=== PATIENT | male | born 1955 | race Caucasian/White ===

== ENCOUNTER 2017-12-03 18:00 | Inpatient (IN) | payer BC, OTHER, SELFPAY ==
[2017-12-03] VITALS (9 sets, daily range): BP systolic 110–139; BP diastolic 62–79; PULSE 84–97; RESP 16–24; TEMP 36.9–39.8; O2SAT 89–95; BMI 34.2
--- NOTE | 2017-12-03 18:19 | DI.RAD.S_ITS ---
PROCEDURE: XR CHEST 1V INDICATIONS: suspected sepsis TECHNIQUE: One view of the chest was acquired. COMPARISON: None. FINDINGS: Surgical changes and devices: None. Lungs and pleura: Focal pulmonary consolidation is present at the inferior right upper lobe. Airspace opacities are likely present at the left lung base as well. Mediastinum: Mediastinal contours appear normal. Heart size is normal. Bones and chest wall: No suspicious bony lesions. Overlying soft tissues appear unremarkable. IMPRESSION: Findings suspicious for multifocal pneumonia. Dictated by: Kim Lima M.D. on 12/03/2017 at 19:00 Approved by: Kim Lima M.D. on 12/03/2017 at 19:01
[2017-12-03] MEDS: IBUPROFEN 400 MG TABLET 800 MG PO (18:21)
[2017-12-03] MEDS: ACETAMINOPHEN 325 MG TABLET 975 MG PO (18:22)
[2017-12-03] MEDS: SODIUM CHLORIDE 0.9% 1,000 ML 1000 ML IV ×2 (18:37→19:39)
[2017-12-03 18:42] LABS: Add Manual Diff / Slide Review NO; Basophils Percent Auto 0.3 % (0-2); Hematocrit 41.4 % (41-53); Hemoglobin 14.2 g/dL (13.5-17.5); Lymphocytes Percent Auto 16.4 % (25-40); Mean Corpuscular HGB Conc 34.3 % (30-36); Mean Corpuscular Hemoglobin 30.8 PG (26-34); Mean Corpuscular Volume 89.7 fL (80-100); Monocytes Percent Auto 19.3 % (3-14); Neutrophils Absolute Auto 3600 /uL (3000-5900); Platelet Count 186 X10^3/uL (150-400); Red Blood Cell Count 4.61 X10^6/uL (4.5-5.9); Red Cell Distribution Width 14.9 % (11.6-14.8); White Blood Cell Count 5.7 X10^3/uL (4.5-11.0)
[2017-12-03 18:53] LABS: INR 1.5 (0.9-1.3); Prothrombin Time 16.1 SECONDS (10.1-12.7)
[2017-12-03 18:56] LABS: PTT Partial Thromboplastin Tim 35 SECONDS (26.4-36.2)
[2017-12-03 19:07] LABS: Alanine Aminotransferase 34 IU/L (21-72); Albumin Globulin Ratio 1.2 (1.0-2.8); Alkaline Phosphatase 57 U/L (38-126); Aspartate Aminotransferase 45 IU/L (17-59); BUN Creatinine Ratio 21.1 (6-22); Bilirubin Total 0.4 mg/dL (0.2-1.3); Blood Urea Nitrogen 19 mg/dL (9-20); Calcium 8.8 mg/dL (8.4-10.2); Carbon Dioxide 26 mmol/L (22-32); Chloride 99 mmol/L (98-107); Estimated Glomerular Filt Rate > 60.0 mL/min (>60); Globulin 3.4 g/dL (1.7-4.1); Glucose 105 mg/dL (80-110); HEMOLYSIS < 15 (0-50); Lipase 54 U/L (23-300); Potassium 4.2 mmol/L (3.4-5.1); Sodium 137 mmol/L (137-145); Total Protein 7.4 g/dL (6.3-8.2)
[2017-12-03 19:08] LABS: Lactate (Lactic Acid) 1.1 mmol/L (0.7-2.1)
[2017-12-03 19:15] LABS: Procalcitonin 0.74 ng/mL (<0.5)
--- NOTE | 2017-12-03 19:21 | ED.FEVER ---
HPI - Fever General Chief Complaint: Fever Stated Complaint: FEVER,SHAKES BAD HEADACHE Time Seen by Provider: 12/03/17 18:42 Source: patient and family Mode of arrival: ambulatory Limitations: no limitations History of Present Illness HPI Narrative: 62-year-old male with cardiac history presents with his and a chief complaint of fever and chills over the past week or so. He is currently driving cross-country in his RV and denies much in the way of specific symptoms but does state he has had a vague frontal headache in the absence of any neck pain, confusion or blurred vision. He denies runny nose or sore throat. He denies chest pain but has had some cough. He denies nausea, vomiting or diarrhea. He denies dysuria, frequency or urgency. He denies any rash, redness or swollen skin MD complaint: fever Onset (ago): day(s) Temperature Source: oral Associated symptoms: headache and cough Relieving factors: nothing Exacerbating factors: nothing Related Data Home Medications Medication Instructions Recorded Confirmed amlodipine 10 mg tablet 10 mg PO DAILY 12/03/17 12/03/17 aspirin 81 mg tablet,delayed 81 mg PO DAILY 12/03/17 12/03/17 release clopidogrel 75 mg tablet 75 mg PO DAILY 12/03/17 12/03/17 fenofibrate micronized 134 mg 134 mg PO DAILY 12/03/17 12/03/17 capsule meloxicam 7.5 mg PO DAILY 12/03/17 12/03/17 metoprolol tartrate 100 mg tablet 100 mg PO BID 12/03/17 12/03/17 naltrexone 50 mg tablet 50 mg PO DAILY 12/03/17 12/03/17 ramipril 10 mg capsule 10 mg PO DAILY 12/03/17 12/03/17 valacyclovir 500 mg PO Q8H 12/03/17 12/03/17 Allergies Allergy/AdvReac Type Severity Reaction Status Date / Time Lqipycn-Owg-Vxb Reductase Allergy Verified 12/03/17 17:26 Inhibitor Review of Systems Review of Systems All systems reviewed & are unremarkable except as noted in HPI and below Constitutional Reports chills, Reports fever(s), Reports headache(s), Denies lethargy and Denies weakness Eyes Denies change in vision, Denies eye discharge, Denies irritation and Denies loss of vision ENT Ears, Nose, Mouth, and Throat: Denies change in voice, Reports headache(s), Denies neck pain and Denies sore throat Cardiovascular Denies chest pain, Denies irregular heart rhythm, Denies lightheadedness, Denies palpitations, Denies dyspnea, Denies dyspnea on exertion and Denies orthopnea Respiratory Reports cough, Denies dyspnea, Denies dyspnea on exertion and Denies wheezing Gastrointestinal Gastrointestinal: Denies abdominal pain, Denies change in bowel habits, Denies diarrhea, Denies nausea and Denies vomiting Genitourinary Denies hematuria, Denies flank pain, Denies urinary incontinence and Denies urinary urgency Musculoskeletal Denies neck pain Integumentary/Breasts Denies pruritus, Denies erythema, Denies rash and Denies wounds Neurologic Denies confusion, Reports headache(s), Denies loss of vision and Denies weakness Psychiatric Denies anxiety, Denies confusion, Denies depression, Denies homicidal ideation and Denies suicidal ideation Endocrine Denies palpitations Hematologic/Lymphatic Denies easy bruising Allergic/Immunologic Denies wheezing [facility] Medical History CAD (coronary artery disease) (Acute) Carpal tunnel syndrome on both sides (Acute) Hypertension (Acute) Rotator cuff arthropathy of both shoulders (Acute) Surgical History History of appendectomy (Acute) History of tonsillectomy (Acute) Hx of LASIK (Acute) Hx of coronary artery bypass surgery (Acute) Stented coronary artery (Acute) Social History household members: spouse Smoking Status: Never smoker alcohol intake: current Exam Narrative Exam Narrative: 62-year-old male is resting comfortably, in no respiratory distress, hypoxic at 84% on arrival Initial Vital Signs Initial Vital Signs: Vital Signs Temperature 103.7 F H 12/03/17 18:12 Pulse Rate 94 H 12/03/17 18:12 Respiratory Rate 20 12/03/17 18:12 Blood Pressure 139/79 12/03/17 18:12 Pulse Oximetry 94 12/03/17 18:12 Const General: cooperative, well developed and acute distress Nutritional Appearance: well nourished and obese Orientation: alert, awake, oriented x3 and not confused HENMT Head: normocephalic and atraumatic Ears: external ears normal and TM's normal bilaterally Nose: external nose normal and No nasal discharge Face and sinus: sinuses nontender, face symmetric, no sinus tenderness and No dry mucous membranes Mouth: oral mucosae normal and moist mucous membranes Teeth and gingiva: dentition normal Throat: tonsils normal and uvula midline Eyes General: appearance normal, both eyes and all related structures Eyelids: eyelids normal Conjunctivae: conjunctivae normal Sclera: sclerae normal Pupils: PERRL EOM: EOM intact bilaterally Neck Neck: No positive Brudzinski's sign and No positive Kernig's sign Other: No meningeal signs Chest Chest: normal inspection of the chest Resp Effort & Inspection: able to speak in complete sentences, respiratory distress, tachypneic and uses accessory muscles Auscultation: clear to auscultation bilaterally, crackles bilaterally, no rales, no rhonchi and no wheezes Cardio Rate: regular rate Rhythm: regular rhythm Heart Sounds: no click, no gallops, no murmurs and no rubs Pulses: normal peripheral pulses GI Inspection: non-distended Palpation: soft, no hepatosplenomegaly, No guarding, No pulsatile mass and No tender Auscultation: normal bowel sounds Back/Spine/Pelvis Back: No CVA tenderness Cervical Spine: cervical ROM normal and No pain with cervical ROM Thoracic/Lumbar Spine: thoracic and lumbar spine normal to inspection Skin General: no rashes or lesions noted, No jaundice and No petechiae Extrem General: full ROM, no clubbing, cyanosis or edema, no pedal edema and no calf tenderness Scores CURB-65 Confusion: No BUN >19mg/dL (>7mmol/L): Yes Respiratory rate greater or equal to 30: No SBP <90mmHg or DBP less or equal to 60mmHg: No Age 65 or Older: No CURB-65 Total: 1 Score 0-1 Outpatient care, Score 2 Inpt vs. Obs, Score 3 or over Inpt admit with ICU for score of 4-5 qSOFA Altered Mental Status (GCS <15): No Respiratory rate greater than/equal to 22: No Systolic blood pressure less than or equal to 100: No qSOFA Total: 0 0-1 Not High Risk 1-3 High risk Course Decision to Admit Date: 12/03/17 Decision to Admit time: 19:00 Orders Ordered: ED Orders 12/03/17 18:19 XR chest 1V Stat 12/03/17 18:34 Complete Blood Count AUTO DIFF Stat Comprehensive Metabolic Panel Stat Lactate (Lactic Acid) Stat Lipase Stat Partial Thromboplastin Time Stat Procalcitonin Stat Prothrombin Time INR Stat 12/03/17 18:50 Blood Culture Stat 12/03/17 20:50 Education, smoking cessation ONGOING Acetaminophen (Tylenol) 650 mg PO Q6HR PRN PRN Reason: As Needed for Fever/Mild Pain Hydrocodone Bitart/Acetaminophen ([place] 5/325) 1 tab PO Q4HR PRN PRN Reason: Pain, Moderate (4-6) Al Hydrox/Mg Hydrox/Simethicone (Maalox Plus) 30 ml PO Q6HR PRN PRN Reason: Dyspepsia Bisacodyl (Dulcolax) 10 mg [place] DAILY PRN PRN Reason: Constipation Calcium Carbonate (Tums) 1,000 mg PO Q4HR PRN PRN Reason: Dyspepsia Docusate Sodium (Colace) 100 mg PO BID [facility] Last Admin: 12/03/17 21:33 Dose: Not Given Enoxaparin Sodium (Lovenox) 40 mg SUBCUT DAILY [facility] Sodium Chloride (Normal Saline 0.9%) 1,000 mls @ 100 mls/hr IV CONT [facility] Last Admin: 12/03/17 21:33 Dose: 100 mls/hr Azithromycin 500 mg/ Dextrose 250 mls @ 250 mls/hr IV Q24H [facility] Last Infusion: 12/03/17 23:25 Dose: 0 mls/hr Admin: 12/03/17 21:32 Dose: 250 mls/hr Magnesium Hydroxide (Milk Of Magnesia) 30 ml PO DAILY PRN PRN Reason: Constipation Ondansetron HCl (Zofran) 4 mg IV Q8HR PRN PRN Reason: Nausea And Vomiting Ondansetron HCl (Zofran Odt) 4 mg PO Q8HR PRN PRN Reason: Nausea And Vomiting Pantoprazole Sodium (Protonix) 20 mg PO 0600 [facility] Sennosides (Senna) 17.2 mg PO BEDTIME [facility] Last Admin: 12/03/17 21:33 Dose: Not Given Sodium Biphosphate/Sodium Phosphate (Fleet Enema) 1 each [place] PRN PRN PRN Reason: Constipation Discontinued Medications Acetaminophen (Tylenol) 975 mg PO NOW ONE Stop: 12/03/17 18:20 Last Admin: 12/03/17 18:22 Dose: 975 mg Sodium Chloride (Normal Saline 0.9%) 1,000 mls @ 1,000 mls/hr IV BOLUS ONE Stop: 12/03/17 19:18 Last Infusion: 12/03/17 19:32 Dose: 0 mls/hr Admin: 12/03/17 18:37 Dose: 1,000 mls/hr Ceftriaxone Sodium/Dextrose (Rocephin) 1 gm in 50 mls @ 100 mls/hr IV NOW ONE Stop: 12/03/17 19:32 Last Infusion: 12/03/17 20:10 Dose: 100 mls/hr Admin: 12/03/17 19:36 Dose: 100 mls/hr Sodium Chloride (Normal Saline 0.9%) 1,000 mls @ 1,000 mls/hr IV BOLUS ONE Stop: 12/03/17 20:36 Last Infusion: 12/03/17 20:09 Dose: 1,000 mls/hr Admin: 12/03/17 19:39 Dose: 1,000 mls/hr Ibuprofen (Advil) 800 mg PO NOW ONE Stop: 12/03/17 18:20 Last Admin: 12/03/17 18:21 Dose: 800 mg Ketorolac Tromethamine (Toradol) 15 mg IV NOW ONE Stop: 12/03/17 19:06 Last Admin: 12/03/17 19:35 Dose: 15 mg Reevaluation(s) Reevaluation #1: Respiratory distress rapidly improves with oxygen by nasal cannula Reevaluation #2: Patient feels much better after fluids and Toradol Vital Signs - 8 hr 12/03/17 19:37 12/03/17 20:08 12/03/17 20:33 Temperature 99.1 F 98.9 F Pulse Rate 84 86 Respiratory Rate 20 20 Blood Pressure 110/62 128/76 Pulse Oximetry 93 93 12/03/17 20:50 12/03/17 23:10 Temperature 98.8 F 98.4 F Pulse Rate 86 85 Respiratory Rate 20 16 Blood Pressure 128/76 125/73 Pulse Oximetry 93 95 MDM - Fever Differential Diagnosis Likely fever of unknown origin, community acquired pneumonia, pyelonephritis, viral infection, sepsis and influenza Medical Records Attestation: I reviewed the patient's medical records. Lab Data Attestation: I reviewed the patient's lab results. Result diagrams: 12/03/17 18:34 12/03/17 18:34 Lab Results 12/03/17 12/03/17 12/03/17 Range/Units 18:34 18:34 18:34 WBC 5.7 (4.5-11.0) X10^3/uL RBC 4.61 (4.5-5.9) X10^6/uL Hgb 14.2 (13.5-17.5) g/dL Hct 41.4 (41-53) % MCV 89.7 (80-100) fL MCH 30.8 (26-34) PG MCHC 34.3 (30-36) % RDW 14.9 H (11.6-14.8) % Plt Count 186 (150-400) X10^3/uL Neut % (Auto) 64.0 (50-75) % Lymph % (Auto) 16.4 L (25-40) % [place] % (Auto) 19.3 H (3-14) % Eos % (Auto) 0.0 L (2-4) % Baso % (Auto) 0.3 (0-2) % Neut # (Auto) 3600 (8773-2877) /uL PT 16.1 H (10.1-12.7) SECONDS INR 1.5 H (0.9-1.3) APTT 35 (26.4-36.2) SECONDS Sodium (137-145) mmol/L Potassium (3.4-5.1) mmol/L Chloride (98-107) mmol/L Carbon Dioxide (22-32) mmol/L BUN (9-20) mg/dL Creatinine (0.66-1.25) mg/dL Estimated GFR (>60) mL/min BUN/Creatinine Ratio (6-22) Glucose (80-110) mg/dL Lactate (0.7-2.1) mmol/L Calcium (8.4-10.2) mg/dL Total Bilirubin (0.2-1.3) mg/dL AST (17-59) IU/L ALT (21-72) IU/L Alkaline Phosphatase (38-126) U/L Total Protein (6.3-8.2) g/dL Albumin (3.5-5.0) g/dL Globulin (1.7-4.1) g/dL Albumin/Globulin Ratio (1.0-2.8) Lipase (23-300) U/L Procalcitonin 0.74 H (<0.5) ng/mL 12/03/17 12/03/17 Range/Units 18:34 18:34 WBC (4.5-11.0) X10^3/uL RBC (4.5-5.9) X10^6/uL Hgb (13.5-17.5) g/dL Hct (41-53) % MCV (80-100) fL MCH (26-34) PG MCHC (30-36) % RDW (11.6-14.8) % Plt Count (150-400) X10^3/uL Neut % (Auto) (50-75) % Lymph % (Auto) (25-40) % [place] % (Auto) (3-14) % Eos % (Auto) (2-4) % Baso % (Auto) (0-2) % Neut # (Auto) (7560-9686) /uL PT (10.1-12.7) SECONDS INR (0.9-1.3) APTT (26.4-36.2) SECONDS Sodium 137 (137-145) mmol/L Potassium 4.2 (3.4-5.1) mmol/L Chloride 99 (98-107) mmol/L Carbon Dioxide 26 (22-32) mmol/L BUN 19 (9-20) mg/dL Creatinine 0.90 (0.66-1.25) mg/dL Estimated GFR > 60.0 (>60) mL/min BUN/Creatinine Ratio 21.1 (6-22) Glucose 105 (80-110) mg/dL Lactate 1.1 (0.7-2.1) mmol/L Calcium 8.8 (8.4-10.2) mg/dL Total Bilirubin 0.4 (0.2-1.3) mg/dL AST 45 (17-59) IU/L ALT 34 (21-72) IU/L Alkaline Phosphatase 57 (38-126) U/L Total Protein 7.4 (6.3-8.2) g/dL Albumin 4.0 (3.5-5.0) g/dL Globulin 3.4 (1.7-4.1) g/dL Albumin/Globulin Ratio 1.2 (1.0-2.8) Lipase 54 (23-300) U/L Procalcitonin (<0.5) ng/mL MDM Narrative Medical decision making narrative: Though labs are largely unremarkable, Q so foot score is low and curb 65 is low the patient has multi lobar pneumonia, fever of 103, and initial pulse ox of 83%. Discharge Plan Departure Patient Disposition: Admitted As Inpatient Clinical Impression: Community acquired pneumonia Discharge Date/Time: 12/03/17 20:11 Interventions: ED Discharge Assessment Last Done: 12/03/17 20:08 Admit Date/Time: 12/03/17 19:56 Admit Provider: Alonso Doe
[2017-12-03] MEDS: KETOROLAC 60 MG/2 ML VIAL 15 MG IV (19:35)
[2017-12-03] MEDS: CEFTRIAXONE 1 GM/50 ML FROZ.PIGGY IV (19:36)
[2017-12-03] MEDS: AZITHROMYCIN 500 MG in DEXTROSE 5% IN WATER 250 ML IV (21:32)
[2017-12-03] MEDS: SODIUM CHLORIDE 0.9% 1,000 ML 100 ML IV (21:33)
--- NOTE | 2017-12-03 22:26 | PC.NURSE ---
Pt admitted to acute care from er. Transferred via wheelchair. A/O. Denies pain. 2L O2, 93%. Oriented to room/call light. IV flushed/infusing w/o complications. Wallet/keys/pocket knife locked in safe.
--- NOTE | 2017-12-03 22:34 | PC.NURSE ---
ADMIT NOTE: Patient arrived to acute care via stretcher from ER at 2030. Patient on [place] oxygen 3L. Patient hot to touch but no fever, IVF infusing. Patient pleasant, alert and oriented times 4. Patient belongings placed in safe per patient request. Will continue to monitor.
[2017-12-04] VITALS (14 sets, daily range): BP systolic 110–141; BP diastolic 52–77; PULSE 77–97; RESP 18–24; TEMP 36.9–39.3; O2SAT 89–98
--- NOTE | 2017-12-04 | DI.CT.S_ITS ---
PROCEDURE: CT HEAD/BRAIN WO CON INDICATIONS: six days of debilitating headache in 62 YOA male. TECHNIQUE: Noncontrast 4.5 mm thick angled axial sections acquired from the foramen magnum to the vertex, with coronal and sagittal reformats. For radiation dose reduction, the following was used: automated exposure control, adjustment of mA and/or kV according to patient size. COMPARISON: None. FINDINGS: Image quality: Excellent. CSF spaces: Basal cisterns are patent. No extra-axial fluid collections. Ventricles are normal in size and shape. Brain: No midline shift. No intracranial masses or hemorrhage. Kirkpatrick-white matter interface is normal. Skull and face: Calvarium and visualized facial bones are intact, without suspicious lesions. Sinuses: Visualized sinuses and mastoids are clear. IMPRESSION: No acute intracranial disease process. Dictated by: Nel Martin MD, PhD on 12/04/2017 at 10:29 Approved by: Nel Martin MD, PhD on 12/04/2017 at 10:31
--- NOTE | 2017-12-04 00:25 | PC.NURSE ---
Injection Molding Technician Note: 0000: Awake, alert, denies chest pain or discomfort. Occasional dry cough. Vital signs stable. IV of NS infusing at 100cc/hr in PIV lt forearm. Pt is on telemetry. He remains on O2 2L/NC.
[2017-12-04] MEDS: ACETAMINOPHEN 325 MG TABLET 650 MG PO ×3 (04:11→23:35)
[2017-12-04] MEDS: PANTOPRAZOLE 20 MG TABLET PO (06:32)
[2017-12-04] MEDS: SODIUM CHLORIDE 0.9% 1,000 ML 100 ML IV ×2 (06:33→19:14)
[2017-12-04] MEDS: valACYclovir 500 MG TABLET PO ×3 (08:10→23:34)
[2017-12-04] MEDS: RAMIPRIL 5 MG CAPSULE 10 MG PO (08:10)
[2017-12-04] MEDS: FENOFIBRATE 145 MG TABLET PO (08:11)
[2017-12-04] MEDS: METOPROLOL 50 MG TABLET 100 MG PO (08:11)
[2017-12-04] MEDS: AMLODIPINE 5 MG TABLET 10 MG PO (08:11)
[2017-12-04] MEDS: ASPIRIN EC 81 MG TABLET PO (08:11)
[2017-12-04] MEDS: CLOPIDOGREL 75 MG TABLET PO (08:12)
[2017-12-04] MEDS: ENOXAPARIN 40 MG/0.4 ML SYRINGE SUBCUT (08:12)
[2017-12-04] MEDS: MELOXICAM 7.5 MG TABLET PO (08:13)
[2017-12-04] MEDS: KETOROLAC 30 MG/ML VIAL IV ×3 (08:49→23:34)
--- NOTE | 2017-12-04 09:22 | CM.DANOTE ---
DCP: Case received, EMR reviewed and met with patient. Introduced self and role.DCP template completed with information currently available. Patient is a 62 year old male who admitted yesterday evening to the care of hospitalist team. Patient is from [facility], and does not recall who his primary care physician is. Payer: confirmed: [facility] Out of [facility]. Patient came into hospital with symptoms of fever, tremors, as well as a severe headache. Diagnosis is Pneumonia. Patient is alert and oriented, is here visiting family in [place], he and his are from [place], [place]. P: DCP to continue to assess. Patient's goal is to return home when he is stable. Nati Canada RN/Entrance Guard
--- NOTE | 2017-12-04 11:19 | P.HP_ITS ---
History of Present Illness Date Patient Seen: 12/04/17 Time Patient Seen: 07:08 Chief complaint: FEVER,SHAKES BAD HEADACHE Narrative: Patient is a 62 years of age male who drove across country in an RV with his to visit family in area. During his cross country travel he developed a fairly prominent headache that virtually lasted the 6 days of travel. Patient also notes a dry cough and a fever for the past week. He was seen in the emergency room setting and noted to have bilateral multi lobar pneumonia. Diagnosis community-acquired pneumonia. Patient also had remarkable hypoxemia with a hemoglobin O2 sat of only 84% at room air. Patient is a nonsmoker. He was an alcoholic up until 3 months ago. Patient regularly takes naltrexone daily to reduce urges for alcohol consumption. At the present time patient states he consistently drinks only 1 or 2 beers every other day. He was typically drinking at least a 6 pack daily up until 3 months ago. Patient History Medical History CAD (coronary artery disease) (Acute) Carpal tunnel syndrome on both sides (Acute) Hypertension (Acute) Rotator cuff arthropathy of both shoulders (Acute) Surgical History History of appendectomy (Acute) History of tonsillectomy (Acute) Hx of LASIK (Acute) Hx of coronary artery bypass surgery (Acute) Stented coronary artery (Acute) Comment: PAST MEDICAL HISTORY Patient had myocardial infarction in 2014 with stent placement No history of diabetes nor cancer nor DVT or pulmonary embolism nor chronic lung disease Family & Social History Social History: household members spouse Prior Living Arrangements House Safety & Behavioral: Feels Safe in Current Yes Environment Been Physically Hurt or No Threatened By a Person Suicidal Ideation Description None Tobacco & Substance use: Smoking Status Never smoker alcohol intake current alcohol intake frequency 0-2 drinks per day Substance Use Type does not use Comment: SOCIAL HISTORY Patient is for the past 18 years. Patient stopped alcohol abuse and drinking excessively 3 months ago Patient has been on naltrexone daily to reduce urges for alcohol abuse Patient notes he drinks 1 or 2 beers every other day fairly consistently Patient is nonsmoker SURGICAL HISTORY Patient notes cardiac stents placed to nephews ago 2014 FAMILY HISTORY Father with history of alcohol abuse mother with history of diabetes Meds Home Medications Medication Instructions Recorded Confirmed Type amlodipine 10 mg tablet 10 mg PO DAILY 12/03/17 12/03/17 History aspirin 81 mg tablet,delayed 81 mg PO DAILY 12/03/17 12/03/17 History release clopidogrel 75 mg tablet 75 mg PO DAILY 12/03/17 12/03/17 History fenofibrate micronized 134 mg 134 mg PO DAILY 12/03/17 12/03/17 History capsule meloxicam 7.5 mg PO DAILY 12/03/17 12/03/17 History metoprolol tartrate 100 mg tablet 100 mg PO BID 12/03/17 12/03/17 History naltrexone 50 mg tablet 50 mg PO DAILY 12/03/17 12/03/17 History ramipril 10 mg capsule 10 mg PO DAILY 12/03/17 12/03/17 History valacyclovir 500 mg PO Q8H 12/03/17 12/03/17 History Allergies Allergy/AdvReac Type Severity Reaction Status Date / Time Abhpvgo-Qzv-Dcq Reductase Allergy Verified 12/03/17 17:26 Inhibitor Review of Systems Review of Systems Ten point system reviewed with patient and was negative except for the symptoms as described. Patient with fever relatively dry cough terrible headache across the frontal lobe region of head Exam Vital Signs (past 8 hours): - 12/04/17 03:50 12/04/17 07:23 12/04/17 09:36 Temperature 102.7 F H 99.5 F Pulse Rate 97 H 83 Respiratory Rate 20 18 Blood Pressure 141/77 H 128/71 Pulse Oximetry 93 96 93 Oxygen Delivery Method Nasal Cannula Oxygen Flow Rate 2 Narrative Exam Narrative: General appearance patient is awake and alert no apparent distress Psychiatric well oriented to time place person mood is pleasant and cooperative affect is appropriate Skin no rashes or lesions no jaundice. Turgor normal Eyes pupils are equal round and reactive to light Ears nose and throat hearing grossly intact nose septum to midline no bleeding no oropharyngeal lesions noted Respiratory clear to auscultation with fairly good flow no significant wheezes or crackles noted his body habitus somewhat obscures exam Cardiovascular regular in rate and rhythm no murmurs are noted +3 pulses to extremities Gastrointestinal abdomen is soft nontender positive bowel sounds no masses no bruits no organomegaly noted The lymphatic system no lymphadenopathy to neck or axilla Neurologic no focal neurologic changes cranial nerves 2-12 grossly intact Motor strength 5/5 no clubbing range of motion or Objective Labs Result Diagrams: 12/03/17 18:34 12/03/17 18:34 Labs: Laboratory Results - last 24 hr 12/03/17 12/03/17 12/03/17 18:34 18:34 18:34 WBC 5.7 RBC 4.61 Hgb 14.2 Hct 41.4 MCV 89.7 MCH 30.8 MCHC 34.3 RDW 14.9 H Plt Count 186 Neut % (Auto) 64.0 Lymph % (Auto) 16.4 L [place] % (Auto) 19.3 H Eos % (Auto) 0.0 L Baso % (Auto) 0.3 Neut # (Auto) 3600 PT 16.1 H INR 1.5 H APTT 35 Sodium Potassium Chloride Carbon Dioxide BUN Creatinine Estimated GFR BUN/Creatinine Ratio Glucose Lactate Calcium Total Bilirubin AST ALT Alkaline Phosphatase Total Protein Albumin Globulin Albumin/Globulin Ratio Lipase Procalcitonin 0.74 H 12/03/17 12/03/17 18:34 18:34 WBC RBC Hgb Hct MCV MCH MCHC RDW Plt Count Neut % (Auto) Lymph % (Auto) [place] % (Auto) Eos % (Auto) Baso % (Auto) Neut # (Auto) PT INR APTT Sodium 137 Potassium 4.2 Chloride 99 Carbon Dioxide 26 BUN 19 Creatinine 0.90 Estimated GFR > 60.0 BUN/Creatinine Ratio 21.1 Glucose 105 Lactate 1.1 Calcium 8.8 Total Bilirubin 0.4 AST 45 ALT 34 Alkaline Phosphatase 57 Total Protein 7.4 Albumin 4.0 Globulin 3.4 Albumin/Globulin Ratio 1.2 Lipase 54 Procalcitonin Assessment & Plan Plan: Assessment/Plan Narrative: 1. Community-acquired pneumonia Rocephin and Zithromax antibiotic started IV. Blood culture submitted. 2. Hypoxemia Patient noted with an 84% hemoglobin on room air at rest upon admission Oxygen provided with good response 3. History of atherosclerotic heart disease Note NM with stent placement 2 and half years ago Continue the cardiac meds as tolerated 4. History of alcoholism Patient was last abusive with alcohol about 3 months ago. Patient is compliant with his naltrexone normally. Not track sound is not on formulary. Patient okay to provide his own once his brings it in Will provide Ativan 1 mg p.o. b.i.d. in the meantime as needed. 5. Fever Tylenol as needed 6. Headache Since patient has had this headache for 6 days and has no prior history of headache problems I am a bit more concerned than usual. Moreover, patient is greater than 50 years of age. I requested a CT of the head brain without contrast to look for evidence of subarachnoid hemorrhage. Will provide analgesic therapy and anti-inflammatory therapy measures this morning to test for affect. Time Spent With Patient Time with patient: Greater than 35 minutes (70 min ) Quality VTE Deep Vein Thrombosis/Pulmonary Embolism Present on Admission: No
--- NOTE | 2017-12-04 11:32 | PC.NURSE ---
Pt up to bathroom independently. Given toradol for headache and pt reported improvement and now rates at 4/10. CT scan completed with NAD. Seen by MD who advised pt will need several more days on antibiotics before dc. O2 sats = 93% on 2l.
[2017-12-04] MEDS: AZITHROMYCIN 500 MG in SODIUM CHLORIDE 0.9% 250 ML IV (13:37)
[2017-12-04] MEDS: CEFTRIAXONE 1 GM/50 ML FROZ.PIGGY IV (14:57)
--- NOTE | 2017-12-04 15:30 | PC.NURSE ---
Pt had an episode of rigors around 1300. observed flushed face and upper ext shaking bilat. Temp 99.6. MD advised and blood cultures ordered. IV abx continue. Pt given tylenol as well. Reports feeling improved an hour later.
[2017-12-04] MEDS: ZOLPIDEM 5 MG TABLET 10 MG PO (23:34)
--- NOTE | 2017-12-04 23:53 | PC.NURSE ---
Addendum entered by Shanel Perez R.N. 12/05/17 05:51: Denies any pain this morning and states he was able to sleep. O2 sat currently 93% on 1L/min oxygen. Continues to deny any SOB. Original Note: Addendum entered by Shanel Perez R.N. 12/05/17 03:35: Patient was on 2L/min oxygen and sat remaining at 95% so decreased to 1L/min. Requested/medicated with 2nd 5mg of Ambien at 0300. Original Note: Patient is alert and oriented. Breath sounds diminished with expiratory wheezes auscultated in bilateral middle lobes. Oxygen at 3L/min with sat of 96% so oxygen decreased to 2.5L/min. Denies SOB/cough. HRR but tachy at 100 bpm apical. Denies nausea. BT hypoactive. Denies dysuria, frequency, urgency or incontinence. Independent with mobility. SCD's applied after explanation provided as to purpose. Patient complains of 3/10 headache above right eye; medicated with scheduled Toradol. Low grade temp of 100.4 so medicated with Tylenol. Requested sleep aid so provided 5mg of Ambien (patient uncertain that he needs 10mg) and is aware if he can't sleep the other 5mg can still be given later. Bed alarm activated since this is first time patient has ever taken Ambien.
[2017-12-05] VITALS (15 sets, daily range): BP systolic 110–138; BP diastolic 55–79; PULSE 72–90; RESP 18–22; TEMP 35.6–38.1; O2SAT 89–95
[2017-12-05] MEDS: ZOLPIDEM 5 MG TABLET 10 MG PO ×2 (03:00→19:59)
[2017-12-05] MEDS: PANTOPRAZOLE 20 MG TABLET PO (05:43)
[2017-12-05] MEDS: KETOROLAC 30 MG/ML VIAL IV ×2 (05:43→13:52)
[2017-12-05] MEDS: SODIUM CHLORIDE 0.9% FLUSH 10 ML IV ×3 (05:43→20:01)
[2017-12-05] MEDS: ASPIRIN EC 81 MG TABLET PO (08:11)
[2017-12-05] MEDS: CLOPIDOGREL 75 MG TABLET PO (08:12)
[2017-12-05] MEDS: valACYclovir 500 MG TABLET PO ×2 (08:12→16:07)
[2017-12-05] MEDS: FENOFIBRATE 145 MG TABLET PO (08:14)
[2017-12-05] MEDS: RAMIPRIL 5 MG CAPSULE 10 MG PO (08:14)
[2017-12-05] MEDS: METOPROLOL ER 50 MG TABLET 100 MG PO (08:15)
[2017-12-05] MEDS: NALTREXONE 50 MG 50 EACH PO (08:16)
[2017-12-05] MEDS: ACETAMINOPHEN 325 MG TABLET 650 MG PO ×2 (08:17→20:01)
[2017-12-05] MEDS: AMLODIPINE 5 MG TABLET 10 MG PO (10:11)
[2017-12-05] MEDS: CEFTRIAXONE 1 GM/50 ML FROZ.PIGGY IV (10:37)
[2017-12-05] MEDS: ENOXAPARIN 40 MG/0.4 ML SYRINGE SUBCUT (13:52)
[2017-12-05] MEDS: AZITHROMYCIN 500 MG in DEXTROSE 5% IN WATER 250 ML IV (13:52)
--- NOTE | 2017-12-05 14:46 | PM.PN.1 ---
Subjective Date Patient Seen: 12/05/17 Time Patient Seen: 10:47 Interval history: Follow-up on patient with multi lobar pneumonia with associated hypoxemia requiring oxygen supplementation. Patient also diagnosed with status migrainosus for 6 days prior to admission. Note a CT of the brain was done noncontrast no bleeding was noted. Patient has been provided initial measures for management with Toradol 30 mg IV Q 6 hr with antiemetic therapy as needed. Patient notes he had difficulty sleeping last night due to the headache. This has been ongoing for the past week or so. Please note on further questioning of the patient he has been having migraine headaches nearly daily for the last several years or so. He has relied upon nonsteroidal anti-inflammatory to abort the headache. His headaches over the past 1-2 years have never been this severe and certainly not this prolonged. Definition of status migrainosus is a migraine headache lasting longer than 72 hr. No patient was driving across country with his in a motor home with this shortness of breath and apparent pneumonia and has suffered the migraine headache all along the way. In view of the failed effort with IV Toradol and antiemetic will proceed with a DHE-45 protocol. A test dosing with DHE 45 will be provided today. On the basis of findings with test dosing of DHE-45 will determine how to proceed management of headache. Exam Vital Signs (past 8 hours): - 12/05/17 07:40 12/05/17 07:58 12/05/17 09:19 Temperature 99.1 F Pulse Rate 72 Respiratory Rate 18 Blood Pressure 125/72 Pulse Oximetry 91 93 89 L 12/05/17 09:20 12/05/17 10:10 12/05/17 11:15 Temperature 99.6 F Pulse Rate 76 77 Respiratory Rate 19 Blood Pressure 138/79 110/55 L Pulse Oximetry 93 93 Oxygen Delivery Method Nasal Cannula Oxygen Flow Rate 1 Narrative Exam Narrative: General appearance patient is in moderate distress related to the continued headache complaint awake and alert Psychiatric well-oriented moderate distress as described due to the headache pain. Affect is appropriate Respiratory fairly clear to auscultation no wheezes crackles Cardiovascular regular rate rhythm no murmurs GI fairly benign soft nontender Extremities are warm Neurologic no focal neurologic changes cranial nerves 2-12 grossly intact Objective Labs Result Diagrams: 12/03/17 18:34 12/03/17 18:34 Assessment & Plan Plan: Assessment/Plan Narrative: 1. Community-acquired pneumonia Rocephin and Zithromax antibiotic started IV. Blood culture submitted. No growth is yet 2. Hypoxemia Patient noted with an 84% hemoglobin on room air at rest upon admission Oxygen provided with good response. 3. History of atherosclerotic heart disease Note [place] with stent placement 2 and half years ago Continue the cardiac meds as tolerated 4. History of alcoholism Patient was last abusive with alcohol about 3 months ago. Patient is compliant with his naltrexone normally. Not track sound is not on formulary. Patient okay to provide his own once his brings it in Will provide Ativan 1 mg p.o. b.i.d. in the meantime as needed. 5. Fever Tylenol as needed 6. Status migrainosus Migraine headache for 6 days prior to admission patient notes over the last several years he has been afflicted with nearly daily migraine headache. Patient notes he has been relying upon nonsteroidals on a regular basis to address headache. I suspect patient with a rebound headache, also known as overuse headache. Nonsteroidal anti-inflammatories have potential to cause a rebound headache when used regularly. I requested a CT of the head brain without contrast to look for evidence of subarachnoid hemorrhage. No intracranial bleed was noted IV Toradol 30 mg q.6 hours was routinely given since yesterday with a PRN antiemetic therapy. Patient notes he slept very poorly last night. I mention to the patient about the DHE-45 protocol and is anxious to proceed with therapy. I have discussed with the patient the risk and benefit. The risks discussed include intracranial hemorrhage and stroke. Patient with cardiac history few years ago. No exercise intolerance or symptoms Of symptomatic heart disease noted since previous intervention, including cardiac stent placement. Community-acquired pneumonia Rocephin and Zithromax antibiotic started IV. Blood culture submitted. 2. Hypoxemia Patient noted with an 84% hemoglobin on room air at rest upon admission Oxygen provided with good response 3. History of atherosclerotic heart disease Note [place] with stent placement 2 and half years ago Continue the cardiac meds as tolerated 4. History of alcoholism Patient was last abusive with alcohol about 3 months ago. Patient is compliant with his naltrexone normally. Not track sound is not on formulary. Patient okay to provide his own once his brings it in Will provide Ativan 1 mg p.o. b.i.d. in the meantime as needed. 5. Fever Tylenol as needed 6. Headache Since patient has had this headache for 6 days and has no prior history of headache problems I am a bit more concerned than usual. Moreover, patient is greater than 50 years of age. I requested a CT of the head brain without contrast to look for evidence of subarachnoid hemorrhage. Will provide analgesic therapy and anti-inflammatory therapy measures this morning to test for affect. Time Spent With Patient Community-acquired pneumonia Rocephin and Zithromax antibiotic started IV. Blood culture submitted. 2. Hypoxemia Patient noted with an 84% hemoglobin on room air at rest upon admission Oxygen provided with good response 3. History of atherosclerotic heart disease Note [place] with stent placement 2 and half years ago Continue the cardiac meds as tolerated 4. History of alcoholism Patient was last abusive with alcohol about 3 months ago. Patient is compliant with his naltrexone normally. Naltrexone is not on formulary. Patient okay to provide his own Naltrexone once his brings it in Will provide Ativan 1 mg p.o. b.i.d. in the meantime as needed. 5. Fever Tylenol as needed 6. Headache Since patient has had this headache for 6 days and has no prior history of headache problems I am a bit more concerned than usual. Moreover, patient is greater than 50 years of age. I requested a CT of the head brain without contrast to look for evidence of subarachnoid hemorrhage. Will provide analgesic therapy and anti-inflammatory therapy measures this morning to test for affect. Time Spent With Patient Cerebral hemorrhage, subarachnoid hemorrhage, and stroke Time Spent With Patient Time with patient: Greater than 35 minutes (45 min including coordination of care in commencing the DHE-45 protocol.) Quality VTE Deep Vein Thrombosis/Pulmonary Embolism Present on Admission: No
[2017-12-05] MEDS: ONDANSETRON 4 MG/2 ML INJ IV (15:31)
[2017-12-05] MEDS: DIHYDROERGOTAMINE 1 MG/ML AMPUL 0.5 MG IV ×2 (16:06→17:00)
--- NOTE | 2017-12-05 21:10 | PC.NURSE ---
Evening Shift Note- New Medications started for this shift for chan/migraine pain. test doses given as ordered starting with zofran 4mg iv 30 minutes prior to first 0.5mg test dose of DHE. DHE given IV over 7 minutes. BP checked after infusion. BP after first test dose at 138/77. no complaints of n/v. second test dose on 0.5mg DHE given as ordered. patient complained of N/V with approx 50cc's emisis out during 7minute infusion. BP checked after infusion as ordered. BP 128/71. results reported to
[2017-12-06] VITALS (16 sets, daily range): BP systolic 122–142; BP diastolic 51–86; PULSE 83–97; RESP 16–20; TEMP 36.8–38.1; O2SAT 89–99
[2017-12-06] MEDS: valACYclovir 500 MG TABLET PO ×3 (00:20→15:56)
--- NOTE | 2017-12-06 00:44 | PC.NURSE ---
Addendum entered by Shanel Perez R.N. 12/06/17 05:55: States headache is 2/10 at rest but increases to 4/10 with activity. Temp recheck is now 98.4 and sat is 93% on 2.5L/min oxygen. Original Note: Addendum entered by Shanel Perez R.N. 12/06/17 05:15: Received DHE earlier with no recurrence of nausea and BP 15min post infusion was 122/69. Was febrile at that time with temp of 100 and still with 3/10 headache so medicated with Tylenol. Original Note: Patient is alert and oriented. Still with 3/10 headache above right eye. Breath sounds diminished throughout especially in bilateral lower lobes. Scattered expiratory wheezes auscultated. Oxygen per NC at 2L/min with sat of 95%. HRR. Denies current nausea. BT present and abdomen is soft. Denies dysuria, frequency, urgency or incontinence. Independent with mobility. Refusing SCD's at this time so reminded to ankle wave when awake. Temp 99.3 tonight.
[2017-12-06] MEDS: ONDANSETRON 4 MG/2 ML INJ IV ×2 (01:48→10:34)
[2017-12-06] MEDS: SODIUM CHLORIDE 0.9% FLUSH 10 ML IV ×3 (02:27→21:12)
[2017-12-06] MEDS: DIHYDROERGOTAMINE 1 MG/ML AMPUL 0.5 MG IV ×3 (02:27→18:55)
[2017-12-06] MEDS: ACETAMINOPHEN 325 MG TABLET 650 MG PO ×2 (03:15→12:24)
[2017-12-06] MEDS: PANTOPRAZOLE 20 MG TABLET PO (05:49)
[2017-12-06] MEDS: CLOPIDOGREL 75 MG TABLET PO (08:17)
[2017-12-06] MEDS: ASPIRIN EC 81 MG TABLET PO (08:17)
[2017-12-06] MEDS: ENOXAPARIN 40 MG/0.4 ML SYRINGE SUBCUT (08:18)
[2017-12-06] MEDS: AMLODIPINE 5 MG TABLET 10 MG PO (08:20)
[2017-12-06] MEDS: FENOFIBRATE 145 MG TABLET PO (08:20)
[2017-12-06] MEDS: NALTREXONE 50 MG 50 EACH PO (08:21)
[2017-12-06] MEDS: RAMIPRIL 5 MG CAPSULE 10 MG PO (08:21)
[2017-12-06] MEDS: CEFTRIAXONE 1 GM/50 ML FROZ.PIGGY IV (11:25)
[2017-12-06] MEDS: AZITHROMYCIN 500 MG in DEXTROSE 5% IN WATER 250 ML IV (14:18)
--- NOTE | 2017-12-06 17:34 | PM.PN.1 ---
Subjective Date Patient Seen: 12/06/17 Time Patient Seen: 11:34 Interval history: Follow-up on patient with community-acquired pneumonia and status migrainosus. Review of systems Patient notes continuance of the headache complaint though perhaps modestly improved. No chest pain or shortness of breath no nausea Exam Vital Signs (past 8 hours): - 12/06/17 11:42 12/06/17 11:45 12/06/17 12:24 Temperature 99.6 F 99.7 F H Pulse Rate 84 Respiratory Rate 18 Blood Pressure 136/76 Pulse Oximetry 89 L 91 12/06/17 12:55 12/06/17 13:48 12/06/17 14:21 Temperature 100.0 F H 98.4 F 98.7 F Pulse Rate Respiratory Rate Blood Pressure 139/76 Pulse Oximetry 12/06/17 16:00 Temperature 98.2 F Pulse Rate 83 Respiratory Rate 20 Blood Pressure 126/68 Pulse Oximetry 92 Oxygen Delivery Method Room Air Oxygen Flow Rate 2.5 Narrative Exam Narrative: Physical exam patient noted awake and alert smiling fairly good spirits no apparent distress Psychiatric well oriented to time place person mood is pleasant cooperative affect is appropriate Skin no rashes or lesions turgor normal nonjaundiced Respiratory clear to auscultation no wheezes no crackles fairly good airflow Cardiovascular regular rate rhythm no murmurs noted PMI nondisplaced pulses +3 to extremities Gastrointestinal soft nontender positive bowel sounds no masses no bruits Neurologic no focal neurologic changes cranial nerves 2-12 grossly intact Objective Labs Result Diagrams: 12/03/17 18:34 12/03/17 18:34 Assessment & Plan Plan: Assessment/Plan Narrative: 1. Community-acquired pneumonia Rocephin and Zithromax antibiotic started IV. Blood culture submitted. No growth is yet 2. Hypoxemia Patient noted with an 84% hemoglobin on room air at rest upon admission Oxygen provided with good response. 3. History of atherosclerotic heart disease Note [place] with stent placement 2 and half years ago Continue the cardiac meds as tolerated 4. History of alcoholism Patient was last abusive with alcohol about 3 months ago. Patient is compliant with his naltrexone normally. Not track sound is not on formulary. Patient okay to provide his own once his brings it in Will provide Ativan 1 mg p.o. b.i.d. prn 5. Fever Tylenol as needed 6. Status migrainosus Migraine headache for 6 days prior to admission patient notes over the last several years he has been afflicted with nearly daily migraine headache. Patient notes he has been relying upon nonsteroidals on a regular basis to address headache. I suspect patient with a rebound headache, also known as overuse headache. Nonsteroidal anti-inflammatories have potential to cause a rebound headache when used regularly. I requested a CT of the head brain without contrast to look for evidence of subarachnoid hemorrhage. No intracranial bleed was noted IV Toradol 30 mg q.6 hours was routinely given December 04 with a PRN antiemetic therapy. Response was suboptimal I mention to the patient about the use of DHE-45 protocol and patient was anxious to proceed with therapy. I have discussed with the patient the risk and benefit. The risks discussed include intracranial hemorrhage and stroke. Patient with cardiac history few years ago. No exercise intolerance or symptoms No symptomatic heart disease noted since previous intervention, including cardiac stent placement. Time Spent With Patient Time with patient: 25 - 35 minutes (25 min) Quality VTE Deep Vein Thrombosis/Pulmonary Embolism Present on Admission: No
[2017-12-07] VITALS (11 sets, daily range): BP systolic 120–137; BP diastolic 70–81; PULSE 76–83; RESP 17–20; TEMP 36.2–37.3; O2SAT 89–96
[2017-12-07] MEDS: valACYclovir 500 MG TABLET PO ×3 (00:07→16:35)
[2017-12-07] MEDS: ZOLPIDEM 5 MG TABLET 10 MG PO (00:10)
[2017-12-07] MEDS: DIHYDROERGOTAMINE 1 MG/ML AMPUL 0.5 MG IV ×3 (02:07→18:00)
[2017-12-07] MEDS: SODIUM CHLORIDE 0.9% FLUSH 10 ML IV ×3 (02:07→20:51)
[2017-12-07] MEDS: PANTOPRAZOLE 20 MG TABLET PO (05:30)
[2017-12-07] MEDS: CEFTRIAXONE 1 GM/50 ML FROZ.PIGGY IV (08:44)
[2017-12-07] MEDS: ENOXAPARIN 40 MG/0.4 ML SYRINGE SUBCUT (08:44)
[2017-12-07] MEDS: CLOPIDOGREL 75 MG TABLET PO (08:45)
[2017-12-07] MEDS: ASPIRIN EC 81 MG TABLET PO (08:45)
[2017-12-07] MEDS: AMLODIPINE 5 MG TABLET 10 MG PO (08:45)
[2017-12-07] MEDS: FENOFIBRATE 145 MG TABLET PO (08:46)
[2017-12-07] MEDS: RAMIPRIL 5 MG CAPSULE 10 MG PO (08:47)
[2017-12-07] MEDS: AZITHROMYCIN 500 MG in DEXTROSE 5% IN WATER 250 ML IV (13:16)
--- NOTE | 2017-12-07 17:28 | PC.NURSE ---
Lilly shift note: Patient awake, alert, pleasant. Independently ambulatory in room, reports feeling very well today.Very minimal ache to left temporal/frontal region. NO SOB noted, and afebrile. Weaned to RA, O2 sat 96%, no increase WOB or SOB. at bedside providing supportive care. Call light within reach.
[2017-12-08] MEDS: ZOLPIDEM 5 MG TABLET 10 MG PO (00:21)
[2017-12-08] MEDS: valACYclovir 500 MG TABLET PO ×2 (00:21→09:39)
--- NOTE | 2017-12-08 00:48 | PM.PN.1 ---
Subjective Date Patient Seen: 12/07/17 Time Patient Seen: 11:48 Interval history: Follow up on patient with community-acquired pneumonia and a status migrainosus condition on admission Review of systems Patient notes the headache persists but certainly quite minimal compared to when he has been experiencing for the past week. No chest pain or shortness of breath no wheezing no nausea Exam Vital Signs (past 8 hours): - 12/07/17 20:30 12/07/17 21:33 Temperature 98.5 F Pulse Rate 83 Respiratory Rate 20 Blood Pressure 130/70 Pulse Oximetry 91 95 Oxygen Delivery Method Room Air Oxygen Flow Rate 0 Narrative Exam Narrative: General appearance patient has noted awake and alert no apparent distress at rest smiling Psychiatric well oriented to time place and person mood is pleasant cooperative affect appropriate Skin no rashes or lesions good turgor nonjaundiced Respiratory clear to auscultation with good airflow no wheezes no crackles Cardiovascular regular rate rhythm no murmurs no rubs no gallops +3 pulses to extremities Gastrointestinal [place] was soft nontender positive bowel sounds no masses Neurologic no focal neurologic changes cranial nerves 2-12 grossly intact Objective Labs Result Diagrams: 12/03/17 18:34 12/03/17 18:34 Assessment & Plan Plan: Assessment/Plan Narrative: 1. Community-acquired pneumonia Rocephin and Zithromax antibiotic started IV. Blood culture submitted. No growth is yet 2. Hypoxemia Patient noted with an 84% hemoglobin on room air at rest upon admission Oxygen provided with good response. Will reassess at room air and titrate for oxygen needs on day of discharge December 08 3. History of atherosclerotic heart disease Note [place] with stent placement 2 and half years ago Continue the cardiac meds as tolerated 4. History of alcoholism Patient was last abusive with alcohol about 3 months ago. Patient is compliant with his naltrexone normally. Note Naltrexone is not on formulary. Patient okay to provide his own once his brings it in Will provide Ativan 1 mg p.o. b.i.d. prn 5. Fever Tylenol as needed 6. Status migrainosus Migraine headache for 6 days prior to admission patient notes over the last several years he has been afflicted with nearly daily migraine headache. Patient notes he has been relying upon nonsteroidals on a regular basis to address headache. I suspect patient with a rebound headache, also known as overuse headache. Nonsteroidal anti-inflammatories have potential to cause a rebound headache when used regularly. I requested a CT of the head brain without contrast to look for evidence of subarachnoid hemorrhage. No intracranial bleed was noted IV Toradol 30 mg q.6 hours was routinely given December 04 with a PRN antiemetic therapy. Response was suboptimal I mention to the patient about the use of DHE-45 protocol and patient was anxious to proceed with therapy. I have discussed with the patient the risk and benefit. The risks discussed include intracranial hemorrhage and stroke. Patient with cardiac history few years ago. No exercise intolerance or symptoms No symptomatic heart disease noted since previous intervention, including cardiac stent placement. Migraine headache still noted on December 07 so plan is to continue the DHE 45 treatment until tomorrow. Time Spent With Patient Time with patient: 25 - 35 minutes (25 min) Quality VTE Deep Vein Thrombosis/Pulmonary Embolism Present on Admission: No
[2017-12-08 01:00] VITALS: BP 148/73; PULSE 78; RESP 16; TEMP 37.1; O2SAT 96
[2017-12-08] MEDS: DIHYDROERGOTAMINE 1 MG/ML AMPUL 0.5 MG IV ×2 (02:20→09:41)
[2017-12-08 02:30] VITALS: BP 137/82; PULSE 76; RESP 17; TEMP 36.6; O2SAT 95
[2017-12-08 08:00] VITALS: BP 135/76; PULSE 79; RESP 18; TEMP 36.9; O2SAT 96
[2017-12-08] MEDS: CLOPIDOGREL 75 MG TABLET PO (09:39)
[2017-12-08] MEDS: FENOFIBRATE 145 MG TABLET PO (09:39)
[2017-12-08] MEDS: RAMIPRIL 5 MG CAPSULE 10 MG PO (09:39)
[2017-12-08] MEDS: ASPIRIN EC 81 MG TABLET PO (09:40)
[2017-12-08] MEDS: SODIUM CHLORIDE 0.9% FLUSH 10 ML IV (09:40)
[2017-12-08] MEDS: AMLODIPINE 5 MG TABLET 10 MG PO (09:40)
[2017-12-08] MEDS: CEFTRIAXONE 1 GM/50 ML FROZ.PIGGY IV (09:46)
--- NOTE | 2017-12-08 12:33 | PM.DS.1 ---
History of Present Illness Date Patient Seen: 12/08/17 Time Patient Seen: 12:33 Chief complaint: FEVER,SHAKES BAD HEADACHE Narrative: Patient is a 62 years of age male who drove across country in an RV with his to visit family in area. During his cross country travel he developed a fairly prominent headache that virtually lasted the 6 days of travel. Patient also notes a dry cough and a fever for the past week. He was seen in the emergency room setting and noted to have bilateral multi lobar pneumonia. Diagnosis community-acquired pneumonia. Patient also had remarkable hypoxemia with a hemoglobin O2 sat of only 84% at room air. Patient is a nonsmoker. He was an alcoholic up until 3 months ago. Patient regularly takes naltrexone daily to reduce urges for alcohol consumption. At the present time patient states he consistently drinks only 1 or 2 beers every other day. He was typically drinking at least a 6 pack daily up until 3 months ago. Discharge Providers Date of admission: 12/03/17 19:56 Discharge provider: Alonso Doe MD Summary Discharge Diagnosis: 1. Multiple lobe bilateral bacterial pneumonia stable on discharge 2. Status migrainosus stable on discharge 3. History of atherosclerotic heart disease stable on discharge 4. Prior history of alcoholism over 3 months ago Hospital Course: Patient admitted with multiple lobe bilateral bacterial pneumonia. Rocephin antibiotic and Zithromax antibiotic provided. Patient respond favorably to the antibiotic regarding his pneumonia. I noted patient with a migraine headache for at least 6 days prior to admission. This met criteria for status migrainosus. Patient was treated with DHE 45 as protocol during hospital course and he tolerated it well.. Patient is stable for discharge. Will discharge patient home with cefuroxime 500 mg b.i.d. for 7 days to complete treatment for pneumonia. Will also provide Topamax starting dose 25 mg at night for 1 week then week to 25 mg b.i.d. week 325 mg in the morning to 50 mg at night for 1 week then on week 4 increased to 50 mg b.i.d. with continuance thereafter. Prescriptions provided Status at Discharge Cognitive/behavioral status at discharge: Awake and alert and stable good cognition well-oriented Functional status at discharge: independent ambulation Time Spent with Patient Greater than 30 minutes (50 min) Exam Vital Signs (past 8 hours): - 12/08/17 08:00 Temperature 98.5 F Pulse Rate 79 Respiratory Rate 18 Blood Pressure 135/76 Pulse Oximetry 96 Oxygen Delivery Method Room Air Oxygen Flow Rate 0 Narrative Exam Narrative: Patient is not awake and alert no apparent distress well oriented anxious for discharge Respiratory is clear to auscultation with good airflow no wheezes no crackles Cardiovascular is regular rate rhythm no murmur rubs or gallops PMI nondisplaced pulses +3 to extremities GI benign soft nontender Neurologic no focal neurologic changes. Objective Labs Result Diagrams: 12/03/17 18:34 12/03/17 18:34 Discharge Plan Discharge Plan Patient Disposition: Home Discharge Med Rec/Prescriptions Prescriptions: New topiramate 25 mg tablet 25 mg PO DAILY Qty: 120 RF: 0 cefuroxime axetil 500 mg tablet 500 mg PO Q12H 7 Days Qty: 14 RF: 0 Continue naltrexone 50 mg tablet 50 mg PO DAILY RF: 0 clopidogrel 75 mg tablet 75 mg PO DAILY RF: 0 aspirin [Adult Aspirin Regimen] 81 mg tablet,delayed release (DR/EC) 81 mg PO DAILY RF: 0 fenofibrate micronized 134 mg capsule 134 mg PO DAILY RF: 0 amlodipine 10 mg tablet 10 mg PO DAILY RF: 0 ramipril 10 mg capsule 10 mg PO DAILY RF: 0 meloxicam 7.5 mg tablet 7.5 mg PO DAILY RF: 0 valacyclovir 500 mg Tablet 500 mg PO Q8H RF: 0 metoprolol succinate 100 mg tablet extended release 24 hr 100 mg/day PO QAM RF: 0 Provider Discharge Instructions Diet: Regular Skin/Wound/Dressing Care Report to your healthcare provider any signs of infection, such as:: chills, fever, night sweats and increased pain Visit Report/Discharge Packet Instructions: DI for Pneumonia -- Adult, Cefuroxime, Topiramate Visit Report Forms: Stroke Signs & Symptoms Discharge Data Attending Provider: Alonso Doe Admit Date/Time: 12/03/17 19:56 Quality VTE Deep Vein Thrombosis/Pulmonary Embolism Present on Admission: No
--- NOTE | 2017-12-08 12:43 | P.DS_ITS ---
History of Present Illness Date Patient Seen: 12/08/17 Time Patient Seen: 12:38 Chief complaint: FEVER,SHAKES BAD HEADACHE Narrative: Patient is a 62 years of age male who drove across country in an RV with his to visit family in area. During his cross country travel he developed a fairly prominent headache that virtually lasted the 6 days of travel. Patient also notes a dry cough and a fever for the past week. He was seen in the emergency room setting and noted to have bilateral multi lobar pneumonia. Diagnosis community-acquired pneumonia. Patient also had remarkable hypoxemia with a hemoglobin O2 sat of only 84% at room air. Patient is a nonsmoker. He was an alcoholic up until 3 months ago. Patient regularly takes naltrexone daily to reduce urges for alcohol consumption. At the present time patient states he consistently drinks only 1 or 2 beers every other day. He was typically drinking at least a 6 pack daily up until 3 months ago. Discharge Providers Date of admission: 12/03/17 19:56 Discharge provider: Alonso Doe MD Summary Discharge Diagnosis: 1. Multilobar pneumonia clinically improved and patient is stable for discharge 2. Status migrainosus patient completed course with DHE 45 protocol with good results 3. History of atherosclerotic heart disease with a stent placed 2015 4. Prior history of alcoholism over 3 months ago 5. Suspected overuse headache compounding history of migraine headache Hospital Course: Patient is a very pleasant 62 years of age male who drove across country for 6 days suffering a migraine headache the entire time. Patient also had an evolving pneumonia process. Patient was admitted to the hospital here at [facility] and was treated for his pneumonia initially. I noted patient with a migraine episode that is started 6 days prior to hospital admission. Status migrainosus defined as a migraine headache longer than 72 hr. I started patient on DHE 45 protocol with outstanding results. Patient tolerated the protocol very nicely. In a.m. on December 08 patient is stable and suitable for discharge. Will discharge patient on Topamax for preventative measure for migraine headache. Patient is to avoid ibuprofen at this time since I suspect contributes to overuse headache. Patient has been having migraine headache for the last 1-2 years. Frequency of headaches nearly daily. Topamax to ramp up to eventually 50 mg p.o. b.i.d. at the preferred optimum dose. Will continue on antibiotic with cefuroxime 500 mg b.i.d. for another 7 days. During hospital course receive Rocephin and Zithromax with good response. No definitive organism identified for this bacterial pneumonia. Status at Discharge Cognitive/behavioral status at discharge: Well oriented in no apparent distress. Jacek cognition affect appropriate mood is pleasant Functional status at discharge: independent ambulation Time Spent with Patient Greater than 30 minutes (45 min discharge) Exam Vital Signs (past 8 hours): - 12/08/17 08:00 Temperature 98.5 F Pulse Rate 79 Respiratory Rate 18 Blood Pressure 135/76 Pulse Oximetry 96 Oxygen Delivery Method Room Air Oxygen Flow Rate 0 Narrative Exam Narrative: Good cognition well-oriented good spirits anxious for discharge Respiratory clear to auscultation with good air flow Cardiovascular regular rate rhythm no murmurs GI is benign soft nontender Neurologic no focal neurologic changes Objective Labs Result Diagrams: 12/03/17 18:34 12/03/17 18:34 Discharge Plan Discharge Plan Patient Disposition: Home Discharge Med Rec/Prescriptions Prescriptions: New topiramate 25 mg tablet 25 mg PO DAILY Qty: 120 RF: 0 cefuroxime axetil 500 mg tablet 500 mg PO Q12H 7 Days Qty: 14 RF: 0 Continue naltrexone 50 mg tablet 50 mg PO DAILY RF: 0 clopidogrel 75 mg tablet 75 mg PO DAILY RF: 0 aspirin [Adult Aspirin Regimen] 81 mg tablet,delayed release (DR/EC) 81 mg PO DAILY RF: 0 fenofibrate micronized 134 mg capsule 134 mg PO DAILY RF: 0 amlodipine 10 mg tablet 10 mg PO DAILY RF: 0 ramipril 10 mg capsule 10 mg PO DAILY RF: 0 meloxicam 7.5 mg tablet 7.5 mg PO DAILY RF: 0 valacyclovir 500 mg Tablet 500 mg PO Q8H RF: 0 metoprolol succinate 100 mg tablet extended release 24 hr 100 mg/day PO QAM RF: 0 Provider Discharge Instructions Diet: Regular Skin/Wound/Dressing Care Report to your healthcare provider any signs of infection, such as:: chills, fever, night sweats and increased pain Discharge Data Attending Provider: Alonso Doe Admit Date/Time: 12/03/17 19:56 Quality VTE Deep Vein Thrombosis/Pulmonary Embolism Present on Admission: No
--- NOTE | 2017-12-08 13:24 | CM.DPC ---
DCP Cont: Patient is to be discharged home today. Patient has no concerns about discharge. Will return to [place] with family, who he has been visiting with before returning to [place]. P: Patient discharged today home. Nati Canada RN/[employer]
--- NOTE | 2017-12-13 10:52 | ED_ITS ---
HPI - Fever General Chief Complaint: Fever Stated Complaint: FEVER,SHAKES BAD HEADACHE Time Seen by Provider: 12/03/17 18:42 Source: patient and family Mode of arrival: ambulatory Limitations: no limitations History of Present Illness HPI Narrative: 62-year-old male with cardiac history presents with his and a chief complaint of fever and chills over the past week or so. He is currently driving cross-country in his RV and denies much in the way of specific symptoms but does state he has had a vague frontal headache in the absence of any neck pain, confusion or blurred vision. He denies runny nose or sore throat. He denies chest pain but has had some cough. He denies nausea, vomiting or diarrhea. He denies dysuria, frequency or urgency. He denies any rash, redness or swollen skin MD complaint: fever Onset (ago): day(s) Temperature Source: oral Associated symptoms: headache and cough Relieving factors: nothing Exacerbating factors: nothing Related Data Home Medications Medication Instructions Recorded Confirmed amlodipine 10 mg tablet 10 mg PO DAILY 12/03/17 12/03/17 aspirin 81 mg tablet,delayed 81 mg PO DAILY 12/03/17 12/03/17 release clopidogrel 75 mg tablet 75 mg PO DAILY 12/03/17 12/03/17 fenofibrate micronized 134 mg 134 mg PO DAILY 12/03/17 12/03/17 capsule meloxicam 7.5 mg PO DAILY 12/03/17 12/03/17 metoprolol tartrate 100 mg tablet 100 mg PO BID 12/03/17 12/03/17 naltrexone 50 mg tablet 50 mg PO DAILY 12/03/17 12/03/17 ramipril 10 mg capsule 10 mg PO DAILY 12/03/17 12/03/17 valacyclovir 500 mg PO Q8H 12/03/17 12/03/17 Allergies Allergy/AdvReac Type Severity Reaction Status Date / Time Ghewfkm-Irl-Tef Reductase Allergy Verified 12/03/17 17:26 Inhibitor Review of Systems Review of Systems All systems reviewed & are unremarkable except as noted in HPI and below Constitutional Reports chills, Reports fever(s), Reports headache(s), Denies lethargy and Denies weakness Eyes Denies change in vision, Denies eye discharge, Denies irritation and Denies loss of vision ENT Ears, Nose, Mouth, and Throat: Denies change in voice, Reports headache(s), Denies neck pain and Denies sore throat Cardiovascular Denies chest pain, Denies irregular heart rhythm, Denies lightheadedness, Denies palpitations, Denies dyspnea, Denies dyspnea on exertion and Denies orthopnea Respiratory Reports cough, Denies dyspnea, Denies dyspnea on exertion and Denies wheezing Gastrointestinal Gastrointestinal: Denies abdominal pain, Denies change in bowel habits, Denies diarrhea, Denies nausea and Denies vomiting Genitourinary Denies hematuria, Denies flank pain, Denies urinary incontinence and Denies urinary urgency Musculoskeletal Denies neck pain Integumentary/Breasts Denies pruritus, Denies erythema, Denies rash and Denies wounds Neurologic Denies confusion, Reports headache(s), Denies loss of vision and Denies weakness Psychiatric Denies anxiety, Denies confusion, Denies depression, Denies homicidal ideation and Denies suicidal ideation Endocrine Denies palpitations Hematologic/Lymphatic Denies easy bruising Allergic/Immunologic Denies wheezing [facility] Medical History CAD (coronary artery disease) (Acute) Carpal tunnel syndrome on both sides (Acute) Hypertension (Acute) Rotator cuff arthropathy of both shoulders (Acute) Surgical History History of appendectomy (Acute) History of tonsillectomy (Acute) Hx of LASIK (Acute) Hx of coronary artery bypass surgery (Acute) Stented coronary artery (Acute) Social History household members: spouse Smoking Status: Never smoker alcohol intake: current Exam Narrative Exam Narrative: 62-year-old male is resting comfortably, in no respiratory distress, hypoxic at 84% on arrival Initial Vital Signs Initial Vital Signs: Vital Signs Temperature 103.7 F H 12/03/17 18:12 Pulse Rate 94 H 12/03/17 18:12 Respiratory Rate 20 12/03/17 18:12 Blood Pressure 139/79 12/03/17 18:12 Pulse Oximetry 94 12/03/17 18:12 Const General: cooperative, well developed and acute distress Nutritional Appearance: well nourished and obese Orientation: alert, awake, oriented x3 and not confused HENMT Head: normocephalic and atraumatic Ears: external ears normal and TM's normal bilaterally Nose: external nose normal and No nasal discharge Face and sinus: sinuses nontender, face symmetric, no sinus tenderness and No dry mucous membranes Mouth: oral mucosae normal and moist mucous membranes Teeth and gingiva: dentition normal Throat: tonsils normal and uvula midline Eyes General: appearance normal, both eyes and all related structures Eyelids: eyelids normal Conjunctivae: conjunctivae normal Sclera: sclerae normal Pupils: PERRL EOM: EOM intact bilaterally Neck Neck: No positive Brudzinski's sign and No positive Kernig's sign Other: No meningeal signs Chest Chest: normal inspection of the chest Resp Effort & Inspection: able to speak in complete sentences, respiratory distress, tachypneic and uses accessory muscles Auscultation: clear to auscultation bilaterally, crackles bilaterally, no rales , no rhonchi and no wheezes Cardio Rate: regular rate Rhythm: regular rhythm Heart Sounds: no click, no gallops, no murmurs and no rubs Pulses: normal peripheral pulses GI Inspection: non-distended Palpation: soft, no hepatosplenomegaly, No guarding, No pulsatile mass and No tender Auscultation: normal bowel sounds Back/Spine/Pelvis Back: No CVA tenderness Cervical Spine: cervical ROM normal and No pain with cervical ROM Thoracic/Lumbar Spine: thoracic and lumbar spine normal to inspection Skin General: no rashes or lesions noted, No jaundice and No petechiae Extrem General: full ROM, no clubbing, cyanosis or edema, no pedal edema and no calf tenderness Scores CURB-65 Confusion: No BUN >19mg/dL (>7mmol/L): Yes Respiratory rate greater or equal to 30: No SBP <90mmHg or DBP less or equal to 60mmHg: No Age 65 or Older: No CURB-65 Total: 1 Score 0-1 Outpatient care, Score 2 Inpt vs. Obs, Score 3 or over Inpt admit with ICU for score of 4-5 qSOFA Altered Mental Status (GCS <15): No Respiratory rate greater than/equal to 22: No Systolic blood pressure less than or equal to 100: No qSOFA Total: 0 0-1 Not High Risk 1-3 High risk Course Decision to Admit Date: 12/03/17 Decision to Admit time: 19:00 Orders Ordered: ED Orders 12/03/17 18:19 XR chest 1V Stat 12/03/17 18:34 Complete Blood Count AUTO DIFF Stat Comprehensive Metabolic Panel Stat Lactate (Lactic Acid) Stat Lipase Stat Partial Thromboplastin Time Stat Procalcitonin Stat Prothrombin Time INR Stat 12/03/17 18:50 Blood Culture Stat 12/03/17 20:50 Education, smoking cessation ONGOING Acetaminophen (Tylenol) 650 mg PO Q6HR PRN PRN Reason: As Needed for Fever/Mild Pain Hydrocodone Bitart/Acetaminophen ([place] 5/325) 1 tab PO Q4HR PRN PRN Reason: Pain, Moderate (4-6) Al Hydrox/Mg Hydrox/Simethicone (Maalox Plus) 30 ml PO Q6HR PRN PRN Reason: Dyspepsia Bisacodyl (Dulcolax) 10 mg DC DAILY PRN PRN Reason: Constipation Calcium Carbonate (Tums) 1,000 mg PO Q4HR PRN PRN Reason: Dyspepsia Docusate Sodium (Colace) 100 mg PO BID [facility] Last Admin: 12/03/17 21:33 Dose: Not Given Enoxaparin Sodium (Lovenox) 40 mg SUBCUT DAILY [facility] Sodium Chloride (Normal Saline 0.9%) 1,000 mls @ 100 mls/hr IV CONT [facility] Last Admin: 12/03/17 21:33 Dose: 100 mls/hr Azithromycin 500 mg/ Dextrose 250 mls @ 250 mls/hr IV Q24H [facility] Last Infusion: 12/03/17 23:25 Dose: 0 mls/hr Admin: 12/03/17 21:32 Dose: 250 mls/hr Magnesium Hydroxide (Milk Of Magnesia) 30 ml PO DAILY PRN PRN Reason: Constipation Ondansetron HCl (Zofran) 4 mg IV Q8HR PRN PRN Reason: Nausea And Vomiting Ondansetron HCl (Zofran Odt) 4 mg PO Q8HR PRN PRN Reason: Nausea And Vomiting Pantoprazole Sodium (Protonix) 20 mg PO 0600 [facility] Sennosides (Senna) 17.2 mg PO BEDTIME [facility] Last Admin: 12/03/17 21:33 Dose: Not Given Sodium Biphosphate/Sodium Phosphate (Fleet Enema) 1 each DC PRN PRN PRN Reason: Constipation Discontinued Medications Acetaminophen (Tylenol) 975 mg PO NOW ONE Stop: 12/03/17 18:20 Last Admin: 12/03/17 18:22 Dose: 975 mg Sodium Chloride (Normal Saline 0.9%) 1,000 mls @ 1,000 mls/hr IV BOLUS ONE Stop: 12/03/17 19:18 Last Infusion: 12/03/17 19:32 Dose: 0 mls/hr Admin: 12/03/17 18:37 Dose: 1,000 mls/hr Ceftriaxone Sodium/Dextrose (Rocephin) 1 gm in 50 mls @ 100 mls/hr IV NOW ONE Stop: 12/03/17 19:32 Last Infusion: 12/03/17 20:10 Dose: 100 mls/hr Admin: 12/03/17 19:36 Dose: 100 mls/hr Sodium Chloride (Normal Saline 0.9%) 1,000 mls @ 1,000 mls/hr IV BOLUS ONE Stop: 12/03/17 20:36 Last Infusion: 12/03/17 20:09 Dose: 1,000 mls/hr Admin: 12/03/17 19:39 Dose: 1,000 mls/hr Ibuprofen (Advil) 800 mg PO NOW ONE Stop: 12/03/17 18:20 Last Admin: 12/03/17 18:21 Dose: 800 mg Ketorolac Tromethamine (Toradol) 15 mg IV NOW ONE Stop: 12/03/17 19:06 Last Admin: 12/03/17 19:35 Dose: 15 mg Reevaluation(s) Reevaluation #1: Respiratory distress rapidly improves with oxygen by nasal cannula Reevaluation #2: Patient feels much better after fluids and Toradol Vital Signs - 8 hr 12/03/17 19:37 12/03/17 20:08 12/03/17 20:33 Temperature 99.1 F 98.9 F Pulse Rate 84 86 Respiratory Rate 20 20 Blood Pressure 110/62 128/76 Pulse Oximetry 93 93 12/03/17 20:50 12/03/17 23:10 Temperature 98.8 F 98.4 F Pulse Rate 86 85 Respiratory Rate 20 16 Blood Pressure 128/76 125/73 Pulse Oximetry 93 95 MDM - Fever Differential Diagnosis Likely fever of unknown origin, community acquired pneumonia, pyelonephritis, viral infection, sepsis and influenza Medical Records Attestation: I reviewed the patient's medical records. Lab Data Attestation: I reviewed the patient's lab results. Result diagrams: 12/03/17 18:34 12/03/17 18:34 Lab Results 12/03/17 12/03/17 12/03/17 Range/Units 18:34 18:34 18:34 WBC 5.7 (4.5-11.0) X10^3/uL RBC 4.61 (4.5-5.9) X10^6/uL Hgb 14.2 (13.5-17.5) g/dL Hct 41.4 (41-53) % MCV 89.7 (80-100) fL MCH 30.8 (26-34) PG MCHC 34.3 (30-36) % RDW 14.9 H (11.6-14.8) % Plt Count 186 (150-400) X10^3/uL Neut % (Auto) 64.0 (50-75) % Lymph % (Auto) 16.4 L (25-40) % [place] % (Auto) 19.3 H (3-14) % Eos % (Auto) 0.0 L (2-4) % Baso % (Auto) 0.3 (0-2) % Neut # (Auto) 3600 (7675-4336) /uL PT 16.1 H (10.1-12.7) SECONDS INR 1.5 H (0.9-1.3) APTT 35 (26.4-36.2) SECONDS Sodium (137-145) mmol/L Potassium (3.4-5.1) mmol/L Chloride (98-107) mmol/L Carbon Dioxide (22-32) mmol/L BUN (9-20) mg/dL Creatinine (0.66-1.25) mg/dL Estimated GFR (>60) mL/min BUN/Creatinine Ratio (6-22) Glucose (80-110) mg/dL Lactate (0.7-2.1) mmol/L Calcium (8.4-10.2) mg/dL Total Bilirubin (0.2-1.3) mg/dL AST (17-59) IU/L ALT (21-72) IU/L Alkaline Phosphatase (38-126) U/L Total Protein (6.3-8.2) g/dL Albumin (3.5-5.0) g/dL Globulin (1.7-4.1) g/dL Albumin/Globulin Ratio (1.0-2.8) Lipase (23-300) U/L Procalcitonin 0.74 H (<0.5) ng/mL 12/03/17 12/03/17 Range/Units 18:34 18:34 WBC (4.5-11.0) X10^3/uL RBC (4.5-5.9) X10^6/uL Hgb (13.5-17.5) g/dL Hct (41-53) % MCV (80-100) fL MCH (26-34) PG MCHC (30-36) % RDW (11.6-14.8) % Plt Count (150-400) X10^3/uL Neut % (Auto) (50-75) % Lymph % (Auto) (25-40) % [place] % (Auto) (3-14) % Eos % (Auto) (2-4) % Baso % (Auto) (0-2) % Neut # (Auto) (9266-3893) /uL PT (10.1-12.7) SECONDS INR (0.9-1.3) APTT (26.4-36.2) SECONDS Sodium 137 (137-145) mmol/L Potassium 4.2 (3.4-5.1) mmol/L Chloride 99 (98-107) mmol/L Carbon Dioxide 26 (22-32) mmol/L BUN 19 (9-20) mg/dL Creatinine 0.90 (0.66-1.25) mg/dL Estimated GFR > 60.0 (>60) mL/min BUN/Creatinine Ratio 21.1 (6-22) Glucose 105 (80-110) mg/dL Lactate 1.1 (0.7-2.1) mmol/L Calcium 8.8 (8.4-10.2) mg/dL Total Bilirubin 0.4 (0.2-1.3) mg/dL AST 45 (17-59) IU/L ALT 34 (21-72) IU/L Alkaline Phosphatase 57 (38-126) U/L Total Protein 7.4 (6.3-8.2) g/dL Albumin 4.0 (3.5-5.0) g/dL Globulin 3.4 (1.7-4.1) g/dL Albumin/Globulin Ratio 1.2 (1.0-2.8) Lipase 54 (23-300) U/L Procalcitonin (<0.5) ng/mL MDM Narrative Medical decision making narrative: Though labs are largely unremarkable, Q so foot score is low and curb 65 is low the patient has multi lobar pneumonia, fever of 103, and initial pulse ox of 83%. Discharge Plan Departure Patient Disposition: Admitted As Inpatient Clinical Impression: Community acquired pneumonia Discharge Date/Time: 12/03/17 20:11 Interventions: ED Discharge Assessment Last Done: 12/03/17 20:08 Admit Date/Time: 12/03/17 19:56 Admit Provider: Alonso Doe
== END 2017-12-08 13:45 | disposition home or self-care (01) | DRG 195 ==
LOC: ED 19:56 → AC 19:57
PROVIDERS: Admitting Provider Internal Medicine; Emergency Provider Emergency Medicine; Visit Provider Internal Medicine
DX: J15.9 Unspecified bacterial pneumonia (principal); R09.02 Hypoxemia; G43.911 Migraine, unspecified, intractable, with status migrainosus; I10 Essential (primary) hypertension; I25.10 Atherosclerotic heart disease of native coronary artery without angina pectoris; F10.21 Alcohol dependence, in remission
CPT/HCPCS: 36415; 36591; 70450; 71045; 80053; 83605; 83690; 84145; 85025; 85610; 85730; 87040; 94760; 96361; 96365; 96375; 99284; 99285; J1110; J1650; J1885; J2405